=== PATIENT | female | born 1945 | race Caucasian/White ===

== ENCOUNTER → 2019-11-03 | Outpatient (CLI) | payer MEDICARE, BC ==
[~2019-11-03] MED LIST: AMLO5TAB6 PO; ASPI81TA26 PO; CIPR-249 PO; CIPR500S PO; CRES20TA2 PO; DULO30CA9 PO; FLOM0.4C39 PO; FOSA70TA PO; GLIM2TAB29 PO; LISI10TA4 PO; METF-415 PO; METO1TAB63 PO; NORC1TAB7 PO; ONGLYZA PO; PERCOCET PO; PRIL40CA PO; VITA500046 PO; VITMTA PO
--- NOTE | 2019-11-03 15:39 | REPMRS ---
Patient History The patient states she had a clinical breast exam in 2019. Family history of breast cancer at age 50 or over in maternal aunt. Benign excisional biopsy of the left breast, 1984. Took hormonal contraceptives for 25 years. Took estrogen for 2 years. Took progesterone for 2 years. Digital Woman Screen Mammo: November 03, 2019 - Exam #: [id number] Bilateral CC and MLO view(s) were taken. Technologist: Sonya Dutton, Technologist Prior study comparison: May 10, 2016, digital woman screen mammo performed at [facility] and [facility]. November 10, 2011, bilateral bilat screen digital mammo, performed at [facility] ([facility]). June 10, 2010, bilateral screening mammogram, performed at [facility]. FINDINGS: There are scattered fibroglandular densities. There has been no change in the appearance of the mammogram from the prior studies. There is a mild amount of scattered fibroglandular density which is fairly symmetric. There is no interval development of dominant mass, architectural distortion, or grouped microcalcification suggestive of malignancy. 3-D tomosynthesis shows no additional findings. Assessment: BI-RADS/ACR category 1 mammogram. Negative Mammogram. Recommendation Routine screening mammogram of both breasts in 1 year (for women over age 40). This patient's Lifetime Breast Cancer Risk is estimated at 3.6 %. This mammogram was interpreted with the aid of an FDA-approved computer-aided dectection system. Electronically Signed By: Dhruv Moulton MD 11/03/19 2499
== END ==
LOC: M WHC 14:46
PROVIDERS: ATTEND Registered Nurse
DX: Z12.31 Encounter for screening mammogram for malignant neoplasm of breast (principal); Z13.820 Encounter for screening for osteoporosis

== ENCOUNTER 2023-09-16 12:15 | Observation (INO) | payer MEDICARE, BC ==
[~2023-09-16] VITALS: Ht 160 cm; Wt 65.4 kg
[~2023-09-16 12:15] MED LIST changes: +ALEN70TA87 PO; +AMLO1TAB24 PO; -AMLO5TAB6 PO; -FOSA70TA PO; +LISI10TA22 PO; -LISI10TA4 PO
[2023-09-16 14:18] LABS: BASO % 0.3 % (0.0-1.0); EOS % 0.2 % (0.0-3.0); HEMATOCRIT 40.4 % (36.0-47.0); LYMPH # 2.1 10^3/uL (1.5-5.0); LYMPH % 22.8 % (24.0-44.0); MEAN CORPUSCULAR HEMOGLOBIN 28.1 pg (27.0-33.0); MEAN CORPUSCULAR HGB CONC 32.2 g/dl (32.0-36.5); MEAN CORPUSCULAR VOLUME 87.4 fl (80.0-96.0); MONO # 0.8 10^3/uL (0.0-0.8); MONO % 8.2 % (2.0-8.0); NEUTROPHILS # 6.3 10^3/uL (1.5-8.5); NEUTROPHILS % 68.1 % (36.0-66.0); PLATELET COUNT, AUTOMATED 613 10^3/uL (150-450); RED BLOOD COUNT 4.62 10^6/uL (4.00-5.40); WHITE BLOOD COUNT 9.2 10^3/uL (4.0-10.0)
[2023-09-16 14:39] LABS: OSMOLALITY SERUM 291 MOSM/KG (280-301)
[2023-09-16 14:42] LABS: ALBUMIN 3.2 G/DL (3.2-5.2); ALKALINE PHOSPHATASE 87 U/L (46-116); ALT/SGPT 16 U/L (7.0-40); AST/SGOT 20 U/L (<34); BILIRUBIN,DIRECT 0.2 MG/DL (<0.4); BLOOD UREA NITROGEN 14 MG/DL (9-23); CALCIUM LEVEL 9.9 MG/DL (8.3-10.6); CARBON DIOXIDE LEVEL 26 MMOL/L (20-31); CHLORIDE LEVEL 99 MMOL/L (98-107); CREATININE FOR GFR 0.71 MG/DL (0.55-1.30); GLOMERULAR FILTRATION RATE > 60.0 (>32); GLUCOSE, FASTING 193 MG/DL (74-106); POTASSIUM SERUM 4.5 MMOL/L (3.5-5.1); SODIUM LEVEL 135 MMOL/L (136-145); TOTAL PROTEIN 6.9 G/DL (5.7-8.2)
[2023-09-16 14:44] LABS: THYROID STIMULATING HORMONE 3.768 uIU/ML (0.55-4.78)
[2023-09-16 16:18] LABS: VENOUS BASE EXCESS -0.4 (-2.0-2.0); VENOUS HCO3 25.5 MMOL/L (23.0-27.0); VENOUS O2 SATURATION 55.5 % (60.0-80.0); VENOUS PARTIAL PRESSURE CO2 46.6 mmHg (38.0-50.0); VENOUS PH 7.356 UNITS (7.330-7.430); VENOUS STANDARD HCO3 23.2 MMOL/L; VENOUS TOTAL CO2 26.9 MMOL/L (24.0-28.0)
[2023-09-16] MEDS ORDERED: NS 500 ML IV ONE (16:40)
[2023-09-16] MEDS ORDERED: MOM 30ML SUSPENSION UDC PO PRN (18:35)
[2023-09-16] MEDS ORDERED: DEXTROSE 50% 50ML SYRINGE IV PRN (19:05)
[2023-09-16] MEDS ORDERED: GLUCAGON INJ 1MG VIAL SC PRN (19:05)
[2023-09-16] MEDS ORDERED: GLUCOSE 4GM CHEW TABLET PO PRN (19:05)
[2023-09-16] MEDS ORDERED: METO1TAB87 PO (20:46)
[2023-09-16] MEDS ORDERED: PIOG1TAB37 PO (20:46)
[2023-09-16] MEDS ORDERED: D-50CAP PO (20:46)
[2023-09-16] MEDS ORDERED: TOUJ1.2I SC (20:46)
[2023-09-16] MEDS ORDERED: OMEP-173 PO (20:46)
[2023-09-16] MEDS ORDERED: ELIQ2.5T PO (20:46)
[2023-09-16] MEDS ORDERED: NITR0.4S14 SL (20:47)
[2023-09-16] MEDS ORDERED: HOME MED LIST COMPLETE! XX SCH (20:50)
[2023-09-16] MEDS ORDERED: CAPTOpril 6.25 MG PER 1/2 TABLET PO SCH (21:00)
[2023-09-16] MEDS ORDERED: INSULIN LISPRO (NovoLOG) PER UNIT SC SCH (21:00)
[2023-09-16 21:06] VITALS: BP 132/83; TEMP 98.1; O2SAT 96
[2023-09-16] MEDS: CEFDINIR 300 MG CAP (OMNICEF) PO SCH (21:30)
[2023-09-17] MEDS: ACETAMINOPHEN TAB 650MG DOSE (2X325MG) PO PRN ×2 (00:27→11:50)
[2023-09-17 04:39] VITALS: BP 133/83; TEMP 97.9; O2SAT 96
[2023-09-17] MEDS: INSULIN LISPRO (NovoLOG) PER UNIT SC SCH ×2 (07:30→12:00)
[2023-09-17] MEDS ORDERED: NITROGLYCERIN 0.4MG SUBL TABLET SL SCH (07:50)
[2023-09-17] MEDS ORDERED: DULoxetine 30MG CAPSULE (CYMBALTA) PO SCH (09:00)
[2023-09-17] MEDS ORDERED: VITAMIN D 1,000 INTERNATIONAL UNITS TABLET PO SCH (09:00)
[2023-09-17] MEDS ORDERED: MULTIVITAMINS/MINERALS THERAP 1 TAB PO SCH (09:00)
[2023-09-17] MEDS ORDERED: APIXABAN 2.5 MG TAB (ELIQUIS) PO SCH (09:00)
[2023-09-17] MEDS ORDERED: OMEPRAZOLE 20MG CAP PO SCH (09:00)
[2023-09-17] MEDS ORDERED: LEVEMIR (INSULIN DETEMIR) 1 UNITS/0.01ML SC SCH (09:00)
[2023-09-17] MEDS ORDERED: LIDOCAINE 5% (LIDODERM) PATCH TD SCH (09:00)
[2023-09-17] MEDS ORDERED: METOPROLOL TART 25 MG TABLET PO SCH (09:00)
[2023-09-17] MEDS ORDERED: PERC5TAB12 PO (10:53)
[2023-09-17] MEDS ORDERED: ACET-683 PO (10:53)
[2023-09-17] MEDS ORDERED: LIDO5DIS41 TOP (10:53)
[2023-09-17] MEDS ORDERED: CYCL5TAB PO (10:53)
[2023-09-17] MEDS ORDERED: DICL100G10 TOP (10:53)
[2023-09-17] MEDS ORDERED: CEFD300CAP PO (10:53)
[2023-09-17] MEDS ORDERED: ROZE8TAB16 PO (10:56)
[2023-09-17] MEDS ORDERED: oxyCODONE 5MG TAB PO ONE (11:15)
[2023-09-17 11:48] VITALS: BP 146/65
[2023-09-17] MEDS: CEFDINIR 300 MG CAP (OMNICEF) PO SCH (11:49)
[2023-09-17] MEDS ORDERED: ROSUVASTATIN 10 MG TAB (CRESTOR) PO SCH (21:00)
[2023-09-22] MEDS ORDERED: ALENDRONATE 35MG TABLET PO SCH (07:00)
== END 2023-09-17 13:10 | disposition home or self-care (01) ==
LOC: EDBD 12:15 → M ED 12:15 → M ED INP 12:16 → ENRESERV 20:30 → M MSPAV 21:05
PROVIDERS: ADMIT Student in an Organized Health Care Education/Training Program; ATTEND Student in an Organized Health Care Education/Training Program
DX: F03.90 Unspecified dementia, unspecified severity, without behavioral disturbance, psychotic disturbance, mood disturbance, and anxiety (principal); R13.10 Dysphagia, unspecified; M79.604 Pain in right leg; R26.89 Other abnormalities of gait and mobility; N39.0 Urinary tract infection, site not specified; E11.9 Type 2 diabetes mellitus without complications; I10 Essential (primary) hypertension; E78.5 Hyperlipidemia, unspecified; Z86.73 Personal history of transient ischemic attack (TIA), and cerebral infarction without residual deficits; I48.0 Paroxysmal atrial fibrillation; M81.0 Age-related osteoporosis without current pathological fracture; K21.9 Gastro-esophageal reflux disease without esophagitis; I25.10 Atherosclerotic heart disease of native coronary artery without angina pectoris; Z79.01 Long term (current) use of anticoagulants; Z79.4 Long term (current) use of insulin; Z79.84 Long term (current) use of oral hypoglycemic drugs; Z79.899 Other long term (current) drug therapy
CPT/HCPCS: 70450; 71045; 73502; 73700; 80048; 80076; 81001; 82140; 82803; 83605; 83930; 84443; 85025; 87040; 87077; 87088; 87186; 87486; 87581; 87633; 87798; 93005; 93041; 94760; 96374; 99285; G0378